=== PATIENT | female | born 1955 | race Caucasian/White ===

== ENCOUNTER 2018-02-18 10:40 | Day surgery (SDC) | payer OTHER ==
[~2018-02-18] VITALS: Ht 170.2 cm; Wt 119.2 kg
[~2018-02-18 10:40] MED LIST: ACTIVELLA1 TAB PO; ALPHAGAN P100 DROP/1 BOTH EYES; CALCIUM600 M1 PO; DICLOFENAC-MIS1 EAC1 PO; EPITOL200 MG PO; HYDROCODON-ACE1 EA14 PO; LIORESAL10 MG PO; LOPREEZA 0.5 M1 EACH PO; Levothroid,Synthroid PO; NEXIUM40 MG PO; OTEZLA30 MG PO; PLAQUENIL200 MG PO; STOOL SOFTENER100 MG PO; SYMBICORT60 INHALAT IH; SYNTHROID125 MCG PO; ZESTORETIC 20-1 EAC2 PO; ZESTORETIC,P1 TABLE1 PO; ZOCOR40 MG PO; Zestoretic,Prinzide PO; [UNRECOGNIZED DRUG - REMARK]; [UNRECOGNIZED DRUG - REMARK]
[2018-02-18 12:03] VITALS: BP 141/70
[2018-02-18 16:00] VITALS: BP 126/64
[2018-02-18 17:00] VITALS: BP 95/67
== END 2018-02-18 17:30 | disposition home or self-care (01) ==
LOC: SDC 10:40
DX: M24.574 Contracture, right foot (principal); M20.41 Other hammer toe(s) (acquired), right foot; I12.9 Hypertensive chronic kidney disease with stage 1 through stage 4 chronic kidney disease, or unspecified chronic kidney disease; N18.9 Chronic kidney disease, unspecified; M19.90 Unspecified osteoarthritis, unspecified site; R14.0 Abdominal distension (gaseous); E78.5 Hyperlipidemia, unspecified; E03.9 Hypothyroidism, unspecified; K21.9 Gastro-esophageal reflux disease without esophagitis; Z68.41 Body mass index [BMI] 40.0-44.9, adult; Z86.19 Personal history of other infectious and parasitic diseases; Z90.49 Acquired absence of other specified parts of digestive tract; Z98.1 Arthrodesis status; Z84.1 Family history of disorders of kidney and ureter; Z83.3 Family history of diabetes mellitus; Z88.5 Allergy status to narcotic agent; Z91.040 Latex allergy status
CPT/HCPCS: 94640; J0131; J0690; J1100; J1170; J2250; J2405; J2550; J2710; J3010; J7643; S0020; S0028